=== PATIENT | male | born 1970 | race Caucasian/White ===

== ENCOUNTER 2022-09-08 08:03 | Outpatient (CLI) | payer BC, SELFPAY ==
--- NOTE | ~2022-09-08 | XR_ITS ---
Supine and upright views of the abdomen Clinical history: Hematuria Findings: Bowel gas pattern is nonspecific. No evidence for obstruction or free air. No abnormal mass lesion or calcification is seen. Osseous structures are intact. Impression: No significant abnormality is seen. Reviewed, dictated and finalized at [facility]. Impression: No significant abnormality is seen.
--- NOTE | ~2022-09-08 | CT_ITS ---
EXAMINATION: CT abdomen pelvis wo/w con DATE: 09/08/2022 08:50 INDICATION: Gross hematuria. History of recent urinary tract infections. TECHNIQUE: Computed tomography (CT) of the abdomen and pelvis was performed without and subsequently with 130 CC Omnipaque 350 intravenous contrast. Automated exposure control and iterative reconstructi on technique were employed. Exam dose: 1911.09 mGy-cm total exam DLP. COMPARISON: 09/08/2022 [facility] FINDINGS: There is prominent atelectasis/round consolidation in the posterior right lower lobe. There is minimal atelectasis or scarring at the lung bases otherwise. No right pleural effusion. There are calcified left diaphragmatic and posterior left chest wall calcified pleural plaques sugges ting possible prior asbestos exposure. Heart size is within upper normal range. No pericardial or left pleural effusion. The liver, gallbladder, bile, pancreas, pancreatic duct are unremarkable. Calcified splenic granuloma s. Splenic size is normal. Normal morphology of the adrenal glands. No urinary tract calculus or hydroureteronephrosis. No renal mass lesion or filling defect of the renal collecting structures or ureters or urinary bladd er is evident. Mild diffuse bladder wall thickening likely secondary to mild prostatomegaly. Minimal prostate calcification. Normal appendix. No bowel obstruction, bowel wall thickening, pneumatosis or intraperitoneal free air . There is atherosclerotic calcification but normal caliber of the abdominal aorta. No intraperitoneal or retroperitoneal or pelvic mass lesion or adenopathy or ascites. No suspicious osteolytic or osteoblastic lesions. Degenerative changes of the thoracic and lumbar spi ne. IMPRESSION: Mild prostate enlargement Left diaphragmatic and posterior chest wall calcified pleural plaques suggesting possible prior asbes tos exposure Prominent atelectasis/consolidation, posterior right lower lobe and mild right pleural effusion Reviewed, dictated and finalized at [facility]. Reviewed, dictated and finalized at [facility]. IMPRESSION: Mild prostate enlargement Left diaphragmatic and posterior chest wall calcified pleural plaques suggestin g possible prior asbestos exposure Prominent atelectasis/consolidation, posterior right lower lobe and mild right pleural effusion
== END 2022-09-08 08:04 | disposition home or self-care (01) ==
PROVIDERS: PCP Family Medicine Sports Medicine; Visit Provider Urology
DX: R31.0 Gross hematuria (principal); N40.0 Benign prostatic hyperplasia without lower urinary tract symptoms
CPT/HCPCS: 74018; 74178; Q9967